=== PATIENT | male | born 1960 | race Caucasian/White ===

== ENCOUNTER 2021-07-03 05:25 | Day surgery (SDC) | payer OTHER ==
[~2021-07-03] VITALS: Ht 167.6 cm; Wt 72.6 kg
[~2021-07-03 05:25] MED LIST: COZAAR100 MG PO; JANUMET XR 50-1 EAC1 PO; LOVASTATIN10 MG PO; PREGABALIN75 MG PO; ZOCOR20 MG PO
== END 2021-07-03 15:05 | disposition home or self-care (01) ==
LOC: CIR.AMB 05:25
PROVIDERS: ATTEND Specialist
DX: K40.90 Unilateral inguinal hernia, without obstruction or gangrene, not specified as recurrent (principal); Z20.822 Contact with and (suspected) exposure to COVID-19; I10 Essential (primary) hypertension; E78.5 Hyperlipidemia, unspecified; Z87.891 Personal history of nicotine dependence
CPT/HCPCS: 49505; C1781